=== PATIENT | female | born 1990 | race Caucasian/White ===

== ENCOUNTER 2016-10-09 08:15 | Emergency (ER) | payer BC ==
[2016-10-09] MEDS ORDERED: NORMAL SALINE 1000 ML 1,000 ML IV ONE ×2 (09:03→10:39)
[2016-10-09] MEDS ORDERED: ONDANSETRON HCL INJ/PF 4 MG/2 ML SDV IV ONE ×2 (09:04→14:09)
--- NOTE | 2016-10-09 09:04 | ER Document Report ---
ED GI/ - General Chief Complaint: Nausea/Vomiting/Diarrhea Stated Complaint: NAUSEA Notes: The patient is a 26-year-old female, past medical history autoimmune hepatitis ( on liver transplant list at [facility]), presents with 6 hours of nausea, nonbloody emesis and 4 episodes of watery diarrhea. Multiple family members have similar symptoms. When she drinks, she is vomiting up any water. She denies abdominal pain, fevers, hematemesis, blood in stool, chest pain, shortness of breath, urinary symptoms, flank pain or rash. TRAVEL OUTSIDE OF THE [place] IN LAST 30 DAYS: No - Related Data Allergies/Adverse Reactions: vancomycin [Vancomycin] Allergy (Verified 10/09/16 08:22) Past Medical History - General Information source: Patient - Social History Smoking Status: Never Smoker Chew tobacco use (# tins/day): No Frequency of alcohol use: None Drug Abuse: None Family History: Reviewed & Not Pertinent Patient has suicidal ideation: No Patient has homicidal ideation: No - Past Medical History Cardiac Medical History: Reports: Hx Hypertension Pulmonary Medical History: Denies: Hx Tuberculosis Endocrine Medical History: Comment Only: Hx Diabetes Mellitus Type 1 - Hx of medication induced Hyperglycemia Renal/ Medical History: Denies: Hx Peritoneal Dialysis GI Medical History: Reports: Hx Hepatitis - Autoimmune hepatitis with liver failure, Hx Liver Failure Psychiatric Medical History: Reports: Hx Depression Infectious Medical History: Reports: Hx Hepatitis - Autoimmune hepatitis with liver failure - Immunizations Hx Diphtheria, Pertussis, Tetanus Vaccination: Yes Review of Systems - Review of Systems Notes: REVIEW OF SYSTEMS: CONSTITUTIONAL: -fevers, -chills EENT: -eye pain, -difficulty swallowing, -nasal congestion CARDIOVASCULAR:-chest pain, -syncope. RESPIRATORY: -cough, -SOB GASTROINTESTINAL: -abdominal pain, +nausea, +vomiting, +diarrhea GENITOURINARY: -dysuria, -hematuria MUSCULOSKELETAL: -back pain, -neck pain SKIN: -rash or skin lesions. HEMATOLOGIC: -easy bruising or bleeding. LYMPHATIC: -swollen, enlarged glands. NEUROLOGICAL: -altered mental status or loss of consciousness, -headache, - neurologic symptoms PSYCHIATRIC: -anxiety, -depression. ALL OTHER SYSTEMS REVIEWED AND NEGATIVE. Physical Exam - Vital signs Vitals: Temp Pulse Resp BP Pulse Ox 99.9 F 115 H 18 97/70 L 94 10/09/16 08:20 10/09/16 08:20 10/09/16 08:20 10/09/16 08:20 10/09/16 08:20 - Notes Notes: PHYSICAL EXAMINATION: GENERAL: Well-appearing, well-nourished and in no acute distress. HEAD: Atraumatic, normocephalic. EYES: Pupils equal round and reactive to light, extraocular movements intact, sclera anicteric, conjunctiva are normal. ENT: nares patent, oropharynx clear without exudates. Moist mucous membranes. NECK: Normal range of motion, supple without lymphadenopathy LUNGS: Breath sounds clear to auscultation bilaterally and equal. No wheezes rales or rhonchi. HEART: Tachycardic, Regular rhythm without murmurs ABDOMEN: Soft, nontender, normoactive bowel sounds. No guarding, no rebound. No masses appreciated. EXTREMITIES: Normal range of motion, no pitting or edema. No cyanosis. NEUROLOGICAL: Cranial nerves grossly intact. Normal speech, normal gait. Normal sensory, motor, and reflex exams. PSYCH: Normal mood, normal affect. SKIN: Warm, Dry, normal turgor, no rashes or lesions noted. Course - Re-evaluation Re-evalutation: Patient with tachycardia, leukopenia and slight hypotension. Unknown source of infection at this time. After Zofran and Reglan, patient's nausea and vomiting have resolved. She is tolerating potassium by mouth to fix her hypokalemia and ice chips. No abdominal tenderness to suggest SBP. She still has not urinated. Spoke to [facility] liver mortgage loan coordinator Bryon, who spoke to the patient's mental health practitioner Dr. Dean, and she thinks that transfer to [facility] for further evaluation and treatment is a good idea. Spoke to Dr. Victor, ER attending at [facility], and he has accepted patient at 13:15. Recommends adding vancomycin for broad-spectrum coverage, but patient is allergic to vancomycin. Will add Linezolid for MRSA coverage. Patient also requires lactulose due to elevated ammonia levels, but will hold off on the lactulose due to transport time to [facility] and no access to bathroom. No signs of hepatic encephalopathy at this time. Spoke to patient and dad and they're comfortable with plan. BP increased to 97/65 (MAP 80) and HR decreased down to 110. Patient feels better. Repeat abdominal exam shows no tenderness. - Vital Signs Vital signs: Temp Pulse Resp BP Pulse Ox 99.9 F 115 H 20 97/73 L 95 10/09/16 08:20 10/09/16 08:20 10/09/16 13:00 10/09/16 12:31 10/09/16 13:00 - Laboratory Result Diagrams: 10/09/16 09:50 10/09/16 09:50 Laboratory results interpreted by me: 10/09/16 10/09/16 10/09/16 09:50 09:50 09:50 WBC 3.0 L Hgb 15.8 H Hct 47.1 H RDW 17.1 H Plt Count 18 L* Lymphocytes % 9.7 L Absolute Lymphocytes 0.3 L Potassium 3.2 L BUN 24 H Lactic Acid 2.9 H Total Bilirubin 3.6 H Direct Bilirubin 0.4 H AST 130 H ALT 186 H Ammonia 10/09/16 09:50 WBC Hgb Hct RDW Plt Count Lymphocytes % Absolute Lymphocytes Potassium BUN Lactic Acid Total Bilirubin Direct Bilirubin AST ALT Ammonia 157.0 H Critical Care Note - Critical Care Note Total time excluding time spent on procedures (mins): 65 Discharge - Discharge Clinical Impression: Nausea vomiting and diarrhea Sepsis Qualifiers: Sepsis type: sepsis due to unspecified organism Qualified Code(s): A41.9 - Sepsis, unspecified organism Condition: Serious Disposition: [facility] Admitting Provider: Dr. Victor
[2016-10-09 10:07] LABS: ABSOLUTE LYMPHOCYTES (AUTO) 0.3 10^3/uL (0.5-4.7); ABSOLUTE MONOCYTES (AUTO) 0.4 10^3/uL (0.1-1.4); ABSOLUTE NEUT (AUTO) 2.3 10^3/uL (1.7-8.2); BASOPHILS % (AUTO) 0.2 % (0-2); EOSINOPHILS % (AUTO) 0.1 % (0-6); HEMATOCRIT 47.1 % (36.0-47.0); HEMOGLOBIN 15.8 g/dL (12.0-15.5); HGB HCT DIFFERENCE 0.3; LYMPHOCYTES % (AUTO) 9.7 % (13-45); MEAN CORPUSCULAR HEMOGLOBIN 30.1 pg (27.0-33.4); MEAN CORPUSCULAR HGB CONC 33.5 g/dL (32.0-36.0); MEAN CORPUSCULAR VOLUME 90 fl (80-97); MONOCYTES % (AUTO) 12.5 % (3-13); RED BLOOD COUNT 5.24 10^6/uL (3.72-5.28); RED CELL DISTRIBUTION WIDTH 17.1 % (11.5-14.0); SEGMENTED NEUTROPHILS % (AUTO) 77.5 % (42-78)
[2016-10-09 10:24] LABS: ALANINE AMINOTRANSFERASE 186 U/L (9-52); ALBUMIN 3.7 g/dL (3.5-5.0); ALKALINE PHOSPHATASE 106 U/L (38-126); ANION GAP 13 (5-19); ASPARTATE AMINO TRANSFERASE 130 U/L (14-36); BILIRUBIN,DIRECT 0.4 mg/dL (0.0-0.3); BILIRUBIN,TOTAL 3.6 mg/dL (0.2-1.3); BLOOD UREA NITROGEN 24 mg/dL (7-20); CALCIUM 8.6 mg/dL (8.4-10.2); CARBON DIOXIDE 23 mmol/L (22-30); CHLORIDE 107 mmol/L (98-107); CREATININE RESULT 0.76 mg/dL (0.52-1.25); GLUCOSE 78 mg/dL (75-110); LIPASE 77.2 U/L (23-300); POTASSIUM 3.2 mmol/L (3.6-5.0); SODIUM 142.8 mmol/L (137-145); TOTAL PROTEIN 6.6 g/dL (6.3-8.2)
[2016-10-09] MEDS ORDERED: METOCLOPRAMIDE HCL INJ/PF 10 MG/2 ML SDV IV ONE (10:39)
[2016-10-09] MEDS ORDERED: POTASSIUM CHLORIDE 10 MEQ TABLET.SA PO ONE (11:46)
[2016-10-09] MEDS ORDERED: CEFTRIAXONE 1 GM/D5W RTU 1 GM/50 ML RTUPB IV ONE (11:48)
[2016-10-09] MEDS ORDERED: CEFTRIAXONE INJ 1000 MG VIAL IV ONE (11:48)
[2016-10-09] MEDS: ALBUMIN HUMAN 50 ML IV SCH ×4 (12:58→14:35)
[2016-10-09] MEDS ORDERED: LINEZOLID 300 ML IV SCH (13:30)
[2016-10-09] MEDS ORDERED: KETOROLAC TROMETHAMINE INJ/PF 30 MG/1 ML SDV IV ONE (14:11)
[2016-10-09] MEDS ORDERED: LINEZOLID 300 ML IV ONE (14:15)
[2016-10-09 14:48] LABS: APPEARANCE,URINE CLOUDY; BILIRUBIN,URINE SMALL (NEGATIVE); GLUCOSE, URINE NEGATIVE (NEGATIVE); KETONES,URINE NEGATIVE (NEGATIVE); LEUKOCYTE ESTERASE,URINE NEGATIVE (NEGATIVE); NITRITE,URINE NEGATIVE (NEGATIVE); PROTEIN,URINE 30 mg/dL (NEGATIVE); URINE SPECIFIC GRAVITY 1.026
[2016-10-09] MEDS ORDERED: LACTULOSE SYRUP 20 GM/30 ML UDCUP PO ONE (15:06)
[2016-10-09 17:29] VITALS: BP 90/59
== END 2016-10-09 14:55 | disposition short-term general hospital (02) ==
LOC: ER 08:15
DX: A41.9 Sepsis, unspecified organism (principal); R11.2 Nausea with vomiting, unspecified; E87.6 Hypokalemia; R19.7 Diarrhea, unspecified; K75.4 Autoimmune hepatitis; I10 Essential (primary) hypertension; R00.0 Tachycardia, unspecified; D72.819 Decreased white blood cell count, unspecified; I95.9 Hypotension, unspecified; Z88.1 Allergy status to other antibiotic agents
CPT/HCPCS: 96376; 99291; 96361; 96375; 96365; 96367; 36415; 87040; 82140; 83690; 85025; 81025; 80076; 80048; 81001; 83605; 71010; P9047; J2020; J1885; J2765; J2405; J7030; J0696

== ENCOUNTER 2016-11-14 10:12 | Outpatient (CLI) | payer BC ==
[~2016-11-14 10:12] MED LIST: ACETAMINOPHEN 325 MG TABLET PO PRN; DIPHENHYDRAMINE HCL 25 MG CAPSULE PO PRN; FUROSEMIDE INJ/PF 20 MG/2 ML SDV IV PRN; NORMAL SALINE 1000 ML 1,000 ML IV PRN
[2016-11-14 11:21] LABS: HEMATOCRIT 39.1 % (36.0-47.0); HEMOGLOBIN 13.1 g/dL (12.0-15.5); HGB HCT DIFFERENCE 0.2; MEAN CORPUSCULAR HEMOGLOBIN 30.5 pg (27.0-33.4); MEAN CORPUSCULAR HGB CONC 33.6 g/dL (32.0-36.0); MEAN CORPUSCULAR VOLUME 91 fl (80-97); RED BLOOD COUNT 4.31 10^6/uL (3.72-5.28); WHITE BLOOD COUNT 2.8 10^3/uL (4.0-10.5)
[2016-11-14 13:08] VITALS: BP 110/56
== END 2016-11-14 13:08 | disposition home or self-care (01) ==
LOC: II 10:12 → 5TH 10:15 → II 13:08
PROVIDERS: ATTEND Specialist
PROC: 30233N1 Transfusion of Nonautologous Red Blood Cells into Peripheral Vein, Percutaneous Approach (ICD-10-PCS; principal; 2016-11-14)
DX: D69.6 Thrombocytopenia, unspecified (principal); K75.4 Autoimmune hepatitis
CPT/HCPCS: 86900; 86901; 36415; 36430; P9035